=== PATIENT | male | born 1980 | race Hispanic/Latino ===

== ENCOUNTER 2021-06-08 09:12 | Emergency (ER) | payer BC, SELFPAY ==
[2021-06-08 09:29] VITALS: BP 130/78; PULSE 65; RESP 18; TEMP 36.6; O2SAT 100
[2021-06-08] MEDS: KETOROLAC (*BKC) 60 MG/2 ML VIAL IM (10:21)
[2021-06-08] MEDS: methylPREDNISolone SOD SUCC 125 MG VIAL IM (10:21)
--- NOTE | 2021-06-08 10:27 | ED.GENADULT ---
HPI - General Adult General Chief complaint: Back Pain/Injury <Kelsey Calle PA-C - Last Filed: 06/08/21 14:20> Stated complaint: BACK PAIN RADIATING DOWN R LEG <Kelsey Calle PA-C - Last Filed: 06/08/21 14:20> Time Seen by Provider: 06/08/21 09:36 <Kelsey Calle PA-C - Last Filed: 06/08/21 14:20> Source: patient and family () <Kelsey Calle PA-C - Last Filed: 06/08/21 14:20> Mode of arrival: ambulatory <Kelsey Calle PA-C - Last Filed: 06/08/21 14:20> Limitations: language barrier (Bel[place]ian translationline used) <Kelsey Calle PA-C - Last Filed: 06/08/21 14:20> History of Present Illness HPI narrative: Patient is a 40-year-old male with chief complaint of pain to his right buttock that radiates down his right leg that has been intermittent over the past month. Patient reports he has been using Tylenol without relief of his symptoms. Patient denies any falls or direct trauma or impact. Patient reports he has not lost control of his bowel or bladder function or had any saddle paresthesias. Patient has been able to ambulate but reports discomfort. Patient denies any fevers, chills.Patient denies flank pain, urinary symptoms. Patient has not seen or attempted to see his PCP for his symptoms. <Kelsey Calle PA-C - Last Filed: 06/08/21 14:20> Related Data Allergies/adverse reactions: Allergies Allergy/AdvReac Type Severity Reaction Status Date / Time No Known Allergies Verified 06/01/10 13:34 <Kelsey Calle PA-C - Last Filed: 06/08/21 14:20> Review of Systems Review of Systems: CONSTITUTIONAL: Denies fever, chills, or sweats. EYES: Denies visual changes, redness, or discharge. ENT: Denies rhinorrhea, congestion, sore throat, or otalgia. CARDIOVASCULAR: Denies chest pain, palpitations, or edema. RESPIRATORY: Denies cough or dyspnea. GASTROINTESTINAL: Denies abdominal pain, nausea, vomiting, or diarrhea. GENITOURINARY: Denies dysuria or hematuria. SKIN: Denies rash or itching. MUSCULOSKELETAL: Reports right sided low back and buttock pain Denies joint pain, or myalgia. NEUROLOGIC: Denies headache, numbness, dizziness, or weakness. PSYCHIATRIC: Denies anxiety or depression. <Kelsey Calle PA-C - Last Filed: 06/08/21 14:20> Exam Narrative: GENERAL: Well-appearing, well-nourished, and in no acute distress. HEAD: Normocephalic, atraumatic. EYES: PERRLA and EOMI. NECK: Supple. No adenopathy or masses. CHEST: Clear to auscultation. No respiratory distress. No wheezes rales or rhonchi HEART: Regular rate and rhythm. No murmur heard. Normal peripheral pulses. ABDOMEN: Soft, nontender, nondistended, normal active bowel sounds. BACK: No vertebral point tenderness or pain along spine. Pain illicited with palpation of right paraspinal muscles and right gluteus. No abscesses, erythema or signs of infection. EXTREMITIES: Normal range of motion. No edema. No weakness. Sensation intact. SKIN: Warm, dry, no rash. NEURO: No focal deficits. Alert and oriented x3. PSYCH: Normal mood and affect. <Kelsey Calle PA-C - Last Filed: 06/08/21 14:20> Course Vital Signs Vital signs: Vital Signs Temperature 98 F 06/08/21 09:29 Pulse Rate 65 06/08/21 09:29 Respiratory Rate 18 06/08/21 09:29 Blood Pressure 130/78 06/08/21 09:29 Pulse Oximetry 100 06/08/21 09:29 Temperature 98 F 06/08/21 09:29 Pulse Rate 65 06/08/21 09:29 Respiratory Rate 18 06/08/21 09:29 Blood Pressure 130/78 06/08/21 09:29 Pulse Oximetry 100 06/08/21 09:29 <Kelsey Calle PA-C - Last Filed: 06/08/21 14:20> Medical Decision Making MDM Narrative Medical decision making narrative: Patient does not have any direct injury or vertebral point tenderness. Patient will be given anti-inflammatories and muscle relaxers. Patient will be given Solu-Medrol injection to decrease inflammation the emergency department. Patient instructed to follow-up with his
== END 2021-06-08 10:42 | disposition home or self-care (01) ==
PROVIDERS: Emergency Provider General Practice; PCP Registered Nurse
DX: M54.31 Sciatica, right side (principal)
CPT/HCPCS: 96372; 99284; J1885; J2930

== ENCOUNTER → 2021-06-17 17:15 | Outpatient (CLI) | payer BC, SELFPAY ==
--- NOTE | ~2021-06-17 | XR_ITS ---
EXAMINATION: XR lumbar spine 2-3V DATE: 06/17/2021 17:38 INDICATION: Right-sided sciatica with low back pain radiating down the right leg TECHNIQUE: Anteroposterior and lateral views of the lumbar spine, and cone-down lateral view of the l umbosacral junction were obtained. COMPARISON: CT dated 06/01/2010 FINDINGS: Transitional L5 segment which is sacralized on the left. Vertebral body heights are normal. Mild decr eased disc height at L5-S1 which could be either degenerative or developmental lumbar facet and bilat eral sacroiliac joints are unremarkable. IMPRESSION: 1. Mild disc height loss at L5-S1 which could be either degenerative in etiology or developmental wit h left sided sacralization of L5. Reviewed, dictated and finalized at location [facility] IMPRESSION: 1. Mild disc height loss at L5-S1 which could be either degenerative in etiolog y or developmental with left sided sacralization of L5.
== END ==
PROVIDERS: PCP Registered Nurse; Visit Provider Registered Nurse
DX: M54.31 Sciatica, right side (principal)
CPT/HCPCS: 72100

== ENCOUNTER 2024-01-28 12:53 | Emergency (ER) | payer OTHER, SELFPAY ==
[2024-01-28 13:07] VITALS: BP 108/65; PULSE 69; RESP 16; TEMP 36.7; O2SAT 99
--- NOTE | 2024-01-28 13:29 | ED.URI ---
HPI - URI/Sore Throat General Chief Complaint: Upper Respiratory Infection Stated Complaint: chills,fever,cough,EDMONDS Time Seen by Provider: 01/28/24 13:29 Source: patient, RN notes reviewed and old records reviewed Mode of arrival: ambulatory Limitations: no limitations History of Present Illness HPI Narrative: Patient presents to [facility] accompanied by his daughter. He is complaining of cold and flu symptoms that have been present for approximately 1 week. He reports cough, runny nose, facial pain, subjective fever. He states that in the middle of the illness he had a day where he felt better, but now feels even worse. Related Data Allergies Allergy/AdvReac Type Severity Reaction Status Date / Time No Known Allergies Verified 01/28/24 12:57 Review of Systems Review of Systems: All systems reviewed & are unremarkable except as noted in HPI and below Constitutional: Constitutional: Reports headache(s), Reports lethargy and Reports malaise ENT: Reports system reviewed and no additional complaints, except as documented, Reports nasal congestion, Reports nasal discharge, Reports post nasal drip, Reports sinus pain and Reports sinus pressure Cardiovascular: Cardiovascular: Reports no additional cardiovascular complaints Respiratory: Respiratory: Reports no additional respiratory complaints Gastrointestinal: Comments: Decreased appetite Neurologic: Reports system reviewed and no additional complaints, except as documented PMFSH Comments At the time of my signature, I reviewed and agree with the nursing past medical, surgical, social, and family history. There is no relevant family history pertinent to the patient complaint. Exam Const: General: cooperative, no acute distress, alert and awake Orientation/consciousness: oriented to person, oriented to place and oriented to time HENMT: Head: normal to inspection Face/Nose/Sinus: sinus tenderness (frontal) Face and sinus: sinus tenderness Throat: postnasal drainage Neck: Lymphatic: lymphadenopathy not noted Resp: Effort & Inspection: normal respiratory effort and able to speak in complete sentences Auscultation: clear to auscultation bilaterally, no crackles, no rales, no rhonchi and no wheezes Cardio: Palpation: normal PMI Rate: regular rate Rhythm: regular rhythm Heart sounds: S1 normal heart sound present and S2 normal heart sound present Neuro: General: oriented to person, oriented to place and oriented to time Cranial nerves: Yes CN's II-XII intact bilaterally Psych: Appearance: grossly normal Thought process: Normal thought process present Insight: Good insight present (Psych) Judgement: Good judgement present (Psych) Course Course Level of Care: Express Care Visit Vital Signs Vital signs: Vital Signs Temperature 98.0 F 01/28/24 13:07 Pulse Rate 69 01/28/24 13:07 Respiratory Rate 16 01/28/24 13:07 Blood Pressure 108/65 01/28/24 13:07 Pulse Oximetry 99 01/28/24 13:07 Oxygen Delivery Room Air 01/28/24 13:07 Temperature 98.0 F 01/28/24 13:07 Pulse Rate 69 01/28/24 13:07 Respiratory Rate 16 01/28/24 13:07 Blood Pressure 108/65 01/28/24 13:07 Pulse Oximetry 99 01/28/24 13:07 Oxygen Delivery Room Air 01/28/24 13:07 Reviewed MDM - URI/Sore Throat MDM Narrative Medical decision making narrative: Patient with 1 week of symptoms, double sickening, will go ahead and treat his sinusitis. Increase fluid intake. Take all meds as prescribed. Follow with primary care provider in 1-2 weeks Differential Diagnosis Differential diagnosis: Likely upper respiratory infection, otitis media, viral infection, influenza, pharyngitis and other Medical Records Attestation: I reviewed the patient's medical records. Discharge Plan Discharge Clinical Impression: Sinusitis Qualifiers: Sinusitis location: frontal Chronicity: acute Recurrence: not specified as recurrent Qualified Code(s): J01.10 - Acute frontal si
== END 2024-01-28 13:50 | disposition home or self-care (01) ==
PROVIDERS: Emergency Provider Nurse Practitioner Family; PCP Registered Nurse
DX: J01.10 Acute frontal sinusitis, unspecified (principal)
CPT/HCPCS: 99213; G0463